=== PATIENT | female | born 1970 | race Caucasian/White ===

== ENCOUNTER 2022-08-23 12:16 | Emergency (ER) | payer MEDICARE, MEDICAID, SELFPAY ==
[2022-08-23 12:36] VITALS: BP 110/69; PULSE 79; RESP 16; TEMP 36.8; O2SAT 99
[2022-08-23 13:41] VITALS: BP 117/72; PULSE 80; RESP 16; O2SAT 97
--- NOTE | 2022-08-23 14:00 | PC.NURSE ---
Patient in room speaking to this RN and NEVA Ramirez and states I was told I was 6 months in December and I haven't been able to get into an [facility]. Patient was notified that her test was negative and NEVA Ramirez did bedside ultrasound on patient to confirm there is no . Patient has no other concerns at this time.
[2022-08-23 14:39] LABS: Eosinophils Absolute Auto 0.1 K/mm3 (0-0.3); Eosinophils Percent Auto 2.4 % (0-4.4); Hematocrit 34.3 % (37.0-47.0); Hemoglobin 11.5 g/dL (12.0-15.0); Immature Granulocyte Absolute 0.06 K/mm3 (0.00-0.031); Immature Granulocyte Percent A 1.5 % (0-0.5); Lymphocytes Absolute Auto 1.66 K/mm3 (0.9-3.2); Lymphocytes Percent Auto 40.6 % (18.3-44.2); Mean Corpuscular HGB Conc 33.5 g/dl (32-36); Mean Corpuscular Volume 89.6 fl (80-100); Mean Platelet Volume 9.4 fl (7.4-10.4); Monocytes Absolute Auto 0.3 K/mm3 (0.1-0.6); Monocytes Percent Auto 8.3 % (2.6-8.5); Neutrophils Absolute Auto 1.9 K/mm3 (1.3-6.7); Neutrophils Percent Auto 46.2 % (45.5-73.1); Platelet Count Result 170 k/mm3 (150-375); Red Blood Count 3.83 M/mm3 (4.2-5.4); Red Cell Distribution Width 12.9 % (11.5-14.5); White Blood Count 4.1 K/mm3 (4.5-10.0)
[2022-08-23 14:49] LABS: Alanine Aminotransferase 24 U/L (6-35); Alkaline Phosphatase 75 U/L (38-126); Anion Gap 11 mmol/L (8-16); Aspartate Amino Transferase 33 U/L (14-36); Bilirubin,Total 0.2 mg/dL (0.2-1.3); Blood Urea Nitrogen 14 mg/dL (7-17); Calcium 8.4 mg/dL (8.4-10.2); Carbon Dioxide 24 mmol/L (22-30); Chloride 106 mmol/L (98-107); Estimated CRCL calculation 95 ml/min; Estimated Glomerular Filt Rate > 60; Glucose 101 mg/dL (65-110); Lipase 189 U/L (23-300); Potassium 3.9 mmol/L (3.4-5.0); Sodium 141 mmol/L (137-145)
[2022-08-23 14:50] LABS: Appearance Urine Slightly Cloudy (Clear); Bilirubin Urine Negative (Negative); Blood Urine Negative (Negative); Color Urine Yellow (Yellow); Glucose Urine UA Negative (Negative); Ketones Urine Trace mg/dL (Negative); Leukocyte Esterase Ur Trace LEU/UL (Negative); Nitrate Urine Negative (Negative); Protein Urine Negative (Negative); Urobilinogen Urine 0.2 mg/dL (<2.0)
[2022-08-23 14:57] LABS: Bacteria Urine Trace /hpf; Mucus Urine Rare /lpf; RBC Urine 0-2 /hpf (0-2); Squamous Epithelial Cell Urine Many /hpf (Few)
[2022-08-23 14:58] LABS: Add Urine Microscopic? YES
[2022-08-23 15:11] VITALS: BP 124/87; PULSE 71; RESP 18; O2SAT 97
--- NOTE | 2022-08-23 16:32 | ED.ABDPAIN ---
HPI - Abdominal Pain General Chief Complaint: Abdominal Pain Stated Complaint: think im /abd pain Time Seen by Provider: 08/23/22 13:37 History of Present Illness HPI narrative: Patient is a 51-year-old female who presents ER with concern of being . She reports in December 2021 she was told that she was either 3 months or 6 months . She is unsure what hospital it was but was in [place]. She reports she has been fighting her insurance to get care. Patient is unsure of her last . She is not felt the baby move. She has had no vaginal bleeding or leakage of fluid. Patient's urine test is negative. Seems highly unlikely patient is given her advanced age and negative test. Discussed that she would be 10 to 12 months at this point given what she had reported this does not seem to confuse her. Patient is oriented x3. She has no reports of intrusive thoughts or other auditory/visual hallucinations. She denies ever being hospitalized for her mental health. She takes no mental health medication. Patient reports she now lives in a hotel in [place] and took a cab here. Related Data Allergies Allergy/AdvReac Type Severity Reaction Status Date / Time bee pollen Allergy Intermediate SWELLING Verified 08/23/22 12:21 morphine Allergy Mild HIVES ON Verified 08/23/22 12:21 RIGHT ARM AND THROAT SWELLING hydroxyzine Allergy Unknown HIVES Verified 08/23/22 12:21 meperidine Allergy Unknown Unknown Verified 08/23/22 12:21 SEA FOOD Allergy Mild Unknown Uncoded 08/23/22 12:21 UNKNOWN ANTIBIOTIC Allergy Mild Unconscious Uncoded 08/23/22 12:21 Review of Systems Review of Systems: All systems reviewed & are unremarkable except as noted in HPI and below Constitutional: Constitutional: Denies chills, Denies fatigue and Denies fever(s) ENT: Denies nasal congestion and Denies sore throat Cardiovascular: Cardiovascular: Denies chest pain, Denies rapid heart rate and Denies radiating jaw, neck or arm pain Respiratory: Respiratory: Denies cough, Denies dyspnea and Denies wheezing Gastrointestinal: Gastrointestinal: Reports abdominal pain (Lower abdominal cramping), Denies nausea and Denies vomiting Genitourinary: Genitourinary: Denies abnormal vaginal bleeding, Denies nocturia, Denies dysuria and Denies vaginal discharge Neurologic: Denies syncope, Denies focal weakness and Denies numbness Psychiatric: Psychiatric: Denies anxiety, Denies depression, Denies homicidal ideation and Denies suicidal ideation PMF Past Medical History Medical History (Updated 08/23/22 @ 17:18 by Brown Ramirez MD) Asthma Surgical History Surgical History (Updated 08/23/22 @ 17:18 by Brown Ramirez MD) History of appendectomy History of hysterectomy Social History Social History (Updated 08/23/22 @ 17:16 by Brown Ramirez MD) Smoking status: Never smoker Exam Narrative: GENERAL: Well-appearing, well-nourished, and in no acute distress. HEAD: Normocephalic, atraumatic. EYES: PERRL and EOMI. ENT: Mucous membranes moist. CHEST: Clear to auscultation. No respiratory distress. HEART: Regular rate and rhythm. Normal peripheral pulses. ABDOMEN: Soft, nontender, nondistended, normal active bowel sounds. EXTREMITIES: Normal range of motion. No edema. SKIN: Warm, dry, no rash. NEURO: Alert and oriented x3. PSYCH: Normal mood and affect. Course Course Emergency Course: Unsure why patient thinks she could be given history of hysterectomy. Patient is oriented x3 and is otherwise interacting appropriately. She does not seem to be a danger to herself or others. Patient can be discharged at this time. Vital Signs Vital signs: Vital Signs Temperature 98.3 F 08/23/22 12:36 Pulse Rate 79 08/23/22 12:36 Respiratory Rate 16 08/23/22 12:36 Blood Pressure 110/69 08/23/22 12:36 Pulse Oximetry 99 08/23/22 12:36 Temperature 98.3 F
--- NOTE | 2022-08-23 17:45 | PC.NURSE ---
Patient states the discharge paperwork shows her last name when she was . ED registration notified.
[2022-08-23 17:53] VITALS: BP 132/82; PULSE 66; RESP 18; O2SAT 98
== END 2022-08-23 17:55 | disposition home or self-care (01) ==
PROVIDERS: Emergency Provider Emergency Medicine
DX: N39.0 Urinary tract infection, site not specified (principal); F22 Delusional disorders; Z90.710 Acquired absence of both cervix and uterus
CPT/HCPCS: 36415; 80053; 81001; 81025; 83690; 85025; 87086; 99283

== ENCOUNTER 2022-09-11 01:26 | Emergency (ER) | payer MEDICARE, MEDICAID, SELFPAY ==
[2022-09-11 01:04] VITALS: PULSE 84; O2SAT 97
[2022-09-11 01:07] VITALS: BP 144/93; PULSE 80
[2022-09-11 01:09] VITALS: PULSE 77; O2SAT 100
[2022-09-11 01:34] VITALS: BP 156/95; PULSE 87; RESP 16; TEMP 36.8; O2SAT 100
--- NOTE | 2022-09-11 02:00 | PC.NURSE ---
Pt arrives to OB unit via EMS with c/o with [facility] either 09/27 or 10/07 and that she doesn't have an OB physician here, but sees somebody in [place]. Pt states that she is having lower abdominal pain and pressure. Pt states that she is a , states she has been leaking fluid for about one month, that contractions started at either 2200 or 2300 and that the abdominal pain and pressure started 30 minutes after that. Pt hooked up to monitors and no heart rate able to be assessed, pt still states that she is . Pt's abdomen does not look to be full term. Vital signs obtained and WNL. Urine sample obtained and urine test performed on the unit with results negative. Upon telling patient that her test is negative she asks if the ER will do an ultrasound because she knows that she is . packing and wrapping supervisor called via charge nurse Cristian KUMAR and pt is transferred to ER via wheelchair without complication.
--- NOTE | 2022-09-11 02:28 | ED.HA ---
HPI - Headache General Chief Complaint: Psychiatric Symptoms Stated Complaint: headache Time Seen by Provider: 09/11/22 02:10 History of Present Illness HPI Narrative: This is a 51-year-old female with delusions of , presenting to the emergency department complaining of headache and saying that she is 36 weeks . She states she has headache, describes it as sharp, bilateral, without associated weakness or numbness. She also states she has pelvic pressure and believes she is 36 weeks and going to deliver. She recognizes that she has had a hysterectomy and states with God everything is possible and I am a [employer]. She has no other complaints. Related Data Allergies Allergy/AdvReac Type Severity Reaction Status Date / Time bee pollen Allergy Intermediate SWELLING Verified 08/23/22 12:21 morphine Allergy Mild HIVES ON Verified 08/23/22 12:21 RIGHT ARM AND THROAT SWELLING hydroxyzine Allergy Unknown HIVES Verified 08/23/22 12:21 meperidine Allergy Unknown Unknown Verified 08/23/22 12:21 SEA FOOD Allergy Mild Unknown Uncoded 08/23/22 12:21 UNKNOWN ANTIBIOTIC Allergy Mild Unconscious Uncoded 08/23/22 12:21 Review of Systems Review of Systems: CONSTITUTIONAL: Denies fever, chills, or sweats. EYES: Denies visual changes, redness, or discharge. ENT: Denies rhinorrhea, congestion, sore throat, or otalgia. CARDIOVASCULAR: Denies chest pain, palpitations, or edema. RESPIRATORY: Denies cough or dyspnea. GASTROINTESTINAL: Pelvic pressure denies abdominal pain, nausea, vomiting, or diarrhea. GENITOURINARY: Denies dysuria or hematuria. SKIN: Denies rash or itching. MUSCULOSKELETAL: Denies back pain, joint pain, or myalgia. NEUROLOGIC: Headache denies numbness, dizziness, or weakness. PSYCHIATRIC: Denies anxiety or depression. PMFSH Past Medical History Medical History Asthma Surgical History Surgical History History of appendectomy History of hysterectomy Social History Social History Smoking status: Never smoker Exam Narrative: GENERAL: Well-developed, well-nourished, and in no acute distress. HEAD: Normocephalic, atraumatic. EYES: PERRLA and EOMI. ENT: Nares clear, no rhinorrhea or epistaxis. Mucous membranes moist. Oropharynx without tonsillar hypertrophy exudate or other lesions. NECK: Supple. No adenopathy or masses. No carotid bruits or JVD CHEST: Clear to auscultation. No respiratory distress. No wheezes rales or rhonchi HEART: Regular rate and rhythm. No murmur heard. Normal peripheral pulses. ABDOMEN: Obese, soft, nontender, nondistended, normal active bowel sounds. EXTREMITIES: Normal range of motion. No edema. SKIN: Warm, dry, no rash. NEURO: No focal deficits. Alert and oriented x3. PSYCH: Normal mood and affect. Course Course Emergency Course: 02:25 - Bedside ultrasound done by me. There is no visible uterus nor intra-abdominal . There is no noted free fluid. These findings were discussed with the patient. 04:00 - UA not concerning for UTI. Patient's test negative. She continues to present with delusions of but again is not demonstrating risk towards her own or other's safety. On reevaluation, she states her pain is improved. Will discharge. Discussed return emergency precautions including signs/symptoms of ACS. Patient voiced understanding is comfortable with the plan. All questions answered to her satisfaction. Vital Signs Vital signs: Vital Signs Temperature 98.2 F 09/11/22 01:34 Pulse Rate 87 09/11/22 01:34 Respiratory Rate 16 09/11/22 01:34 Blood Pressure 156/95 H 09/11/22 01:34 Pulse Oximetry 100 09/11/22 01:34 Oxygen Delivery Room Air 09/11/22 01:34 Temperature 98.2 F 09/11/22 01:34 Pulse Rate 77 09/11/22 03:38 Respiratory
[2022-09-11] MEDS: ACETAMINOPHEN 500 MG TABLET 1000 MG PO (02:56)
[2022-09-11 03:38] VITALS: BP 127/87; PULSE 77; RESP 16; O2SAT 97
--- NOTE | 2022-09-11 03:38 | PC.NURSE ---
Assumed care of pt at this time
[2022-09-11 03:52] LABS: Appearance Urine Cloudy (Clear); Bilirubin Urine 1+ (Negative); Blood Urine Negative (Negative); Color Urine Amber (Yellow); Glucose Urine UA Negative (Negative); Ketones Urine Trace mg/dL (Negative); Leukocyte Esterase Ur Trace LEU/UL (Negative); Nitrate Urine Negative (Negative); Protein Urine 1+ mg/dL (Negative); Specific Grav Ur >= 1.030 (1.001-1.035); Urobilinogen Urine 0.2 mg/dL (<2.0)
[2022-09-11 03:55] LABS: Creatine Kinase 58 U/L (30-135)
[2022-09-11 03:59] LABS: Bacteria Urine Trace /hpf; Calcium Oxalate Crystals Urine Present /hpf; Mucus Urine Heavy /lpf; Squamous Epithelial Cell Urine Many /hpf (Few); WBC Urine 16-20 /hpf
[2022-09-11 04:07] LABS: Add Urine Microscopic? YES
== END 2022-09-11 04:20 | disposition home or self-care (01) ==
PROVIDERS: Emergency Provider Preventive Medicine Aerospace Medicine
DX: R51.9 Headache, unspecified (principal); F22 Delusional disorders; J45.909 Unspecified asthma, uncomplicated; R82.998 Other abnormal findings in urine
CPT/HCPCS: 36415; 81001; 81025; 82550; 87086; 87088; 99283; A9270